=== PATIENT | male | born 1960 | race Caucasian/White ===

== ENCOUNTER 2018-07-13 10:08 | Outpatient (CLI) | payer OTHER ==
[2018-07-13 13:03] LABS: BASOPHILS # (AUTO) 0.1 10^3/uL (0.0-0.1); BASOPHILS % (AUTO) 0.8 %; EOSINOPHILS # (AUTO) 0.5 10^3/uL (0.0-0.7); EOSINOPHILS % (AUTO) 7.4 %; HGB - HEMOGLOBIN 11.5 g/dL (14.0-18.0); LYMPHOCYTES # (AUTO) 1.6 10^3/uL (1.5-3.5); LYMPHOCYTES % (AUTO) 22.1 %; MEAN CORPUSCULAR HEMOGLOBIN 30.6 pg (27.0-31.0); MEAN CORPUSCULAR VOLUME 87.5 fL (80.0-94.0); MONOCYTES # (AUTO) 0.7 10^3/uL (0.0-1.0); NEUTROPHILS # (AUTO) 4.4 10^3/uL (1.5-6.6); NEUTROPHILS % (AUTO) 59.7 %; PLT - PLATELET COUNT 377 10^3/uL (130-450); RED BLOOD COUNT 3.74 10^6/uL (4.70-6.10); RED CELL DISTRIBUTION WIDTH 14.8 % (12.0-15.0); WHITE BLOOD COUNT 7.4 x10^3/uL (4.8-10.8)
== END 2018-07-13 23:59 | disposition home or self-care (01) ==
LOC: LAB.WCP 10:08
PROVIDERS: ATTEND Physician Assistant Medical
DX: D38.1 Neoplasm of uncertain behavior of trachea, bronchus and lung (principal)
CPT/HCPCS: 36415; 85025

== ENCOUNTER 2018-07-18 08:00 | Outpatient (CLI) | payer OTHER ==
[2018-07-18 20:43] LABS: FERRITIN 52.5 ng/mL (23.9-336.2)
[2018-07-18 20:47] LABS: % IRON SATURATION 20 % (20-50); IRON 64 ug/dL (45-182); TOTAL IRON BINDING CAPACITY 319 ug/dL (250-450); TRANSFERRIN 228 mg/dL (180-329)
[2018-07-18 21:28] LABS: FOLATE > 49.60 ng/mL (5.90 - >24.8)
== END 2018-07-18 23:59 | disposition home or self-care (01) ==
LOC: LAB.WCP 08:00
PROVIDERS: ATTEND Physician Assistant Medical
DX: D64.9 Anemia, unspecified (principal)
CPT/HCPCS: 36415; 82607; 82728; 82746; 83540; 84466

== ENCOUNTER 2018-08-15 15:48 | Outpatient (CLI) | payer OTHER | END 2018-08-15 15:49 | disposition home or self-care (01) | LOC: SC 15:48 | PROVIDERS: ATTEND Nurse Practitioner Family | DX: R06.81 Apnea, not elsewhere classified (principal); G47.10 Hypersomnia, unspecified; R41.89 Other symptoms and signs involving cognitive functions and awareness; R06.83 Snoring; G47.8 Other sleep disorders; G47.00 Insomnia, unspecified | CPT/HCPCS: 99204; 99212 ==

== ENCOUNTER 2018-09-21 20:31 | Outpatient (CLI) | payer OTHER | END 2018-09-21 20:32 | disposition home or self-care (01) | LOC: SC 20:31 | PROVIDERS: ATTEND Internal Medicine Pulmonary Disease | DX: G47.33 Obstructive sleep apnea (adult) (pediatric) (principal) | CPT/HCPCS: 95810 ==

== ENCOUNTER 2018-09-27 13:20 | Outpatient (CLI) | payer OTHER | END 2018-09-27 13:21 | disposition home or self-care (01) | LOC: SC 13:20 | PROVIDERS: ATTEND Nurse Practitioner Family | DX: G47.33 Obstructive sleep apnea (adult) (pediatric) (principal) | CPT/HCPCS: 99212; 99215 ==

== ENCOUNTER 2018-10-24 07:13 | Outpatient (CLI) | payer OTHER ==
[2018-10-24 13:37] LABS: ALBUMIN 3.6 g/dL (3.2-5.5); ALBUMIN/GLOBULIN RATIO 1.2 (1.0-2.2); BILIRUBIN,TOTAL 0.8 mg/dL (0.2-1.0); CALCIUM 9.1 mg/dL (8.5-10.3); CREATININE 1.8 mg/dL (0.6-1.2); TOTAL PROTEIN 6.7 g/dL (6.7-8.2)
[2018-10-24 13:39] LABS: HB2 TOTAL 14.2 g/dL; HEMOGLOBIN A1C 0.9 g/dL
== END 2018-10-24 23:59 | disposition home or self-care (01) ==
LOC: LAB.WCP 07:13
PROVIDERS: ATTEND Physician Assistant Medical
DX: E11.9 Type 2 diabetes mellitus without complications (principal)
CPT/HCPCS: 36415; 80053; 83036

== ENCOUNTER 2019-01-17 07:24 | Outpatient (CLI) | payer OTHER ==
[2019-01-17 14:27] LABS: ALBUMIN 3.8 g/dL (3.2-5.5); ALBUMIN/GLOBULIN RATIO 1.1 (1.0-2.2); ALKALINE PHOSPHATASE 81 IU/L (42-121); ALT ALANINE AMINOTRANSFERASE 24 IU/L (10-60); AST ASPARTATE AMINOTRANSFERASE 27 IU/L (10-42); BILIRUBIN,TOTAL 0.6 mg/dL (0.2-1.0); BUN - BLOOD UREA NITROGEN 26 mg/dL (6-20); CALCIUM 9.5 mg/dL (8.5-10.3); CARBON DIOXIDE - CO2 22 mmol/L (21-32); CHLORIDE 106 mmol/L (101-111); CHOL/HDL RATIO 5.5 (<5.0); CHOLESTEROL 180 mg/dL; CREATININE 1.8 mg/dL (0.6-1.2); GFR - MDRD 39 (>89); GLUCOSE 172 mg/dL (70-100); HDL CHOLESTEROL 33 mg/dL; LDL CHOLESTEROL,CALCULATED 107 mg/dL; LDL/HDL RATIO 3.2 (<3.6); SODIUM 138 mmol/L (135-145); TOTAL PROTEIN 7.2 g/dL (6.7-8.2); VLDL CHOLESTEROL 40 mg/dL
== END 2019-01-17 07:25 | disposition home or self-care (01) ==
LOC: LAB.WCP 07:24
PROVIDERS: ATTEND Physician Assistant Medical
DX: E11.9 Type 2 diabetes mellitus without complications (principal)
CPT/HCPCS: 36415; 80053; 80061; 81599; 83036; 83721

== ENCOUNTER 2019-04-16 07:08 | Outpatient (CLI) | payer OTHER ==
[2019-04-16 12:42] LABS: ALBUMIN 3.6 g/dL (3.2-5.5); ALBUMIN/GLOBULIN RATIO 1.1 (1.0-2.2); ALKALINE PHOSPHATASE 85 IU/L (42-121); ALT ALANINE AMINOTRANSFERASE 17 IU/L (10-60); AST ASPARTATE AMINOTRANSFERASE 24 IU/L (10-42); BILIRUBIN,TOTAL 0.7 mg/dL (0.2-1.0); BUN - BLOOD UREA NITROGEN 31 mg/dL (6-20); CALCIUM 9.2 mg/dL (8.5-10.3); CARBON DIOXIDE - CO2 28 mmol/L (21-32); CHLORIDE 106 mmol/L (101-111); CHOL/HDL RATIO 5.3 (<5.0); CHOLESTEROL 144 mg/dL; GFR - MDRD 35 (>89); GLUCOSE 126 mg/dL (70-100); HDL CHOLESTEROL 27 mg/dL; LDL CHOLESTEROL,CALCULATED 48 mg/dL; LDL/HDL RATIO 1.8 (<3.6); SODIUM 140 mmol/L (135-145); TOTAL PROTEIN 6.9 g/dL (6.7-8.2); VLDL CHOLESTEROL 69 mg/dL
[2019-04-16 12:48] LABS: HB2 TOTAL 11.9 g/dL; HEMOGLOBIN A1C 0.58 g/dL; HEMOGLOBIN A1C % 6.6 % (4.6-6.2)
== END 2019-04-16 23:59 | disposition home or self-care (01) ==
LOC: LAB.WCP 07:08
PROVIDERS: ATTEND Physician Assistant Medical
DX: E11.9 Type 2 diabetes mellitus without complications (principal)
CPT/HCPCS: 36415; 80053; 80061; 83036; 83721

== ENCOUNTER → 2019-04-17 | Outpatient (CLI) | payer OTHER ==
--- NOTE | 2019-04-17 21:07 | XRAY Report ---
Reason: COUGH, CARCINOID TUMOR LUNG Procedure Date: 04/17/2019 Accession Number: [id number] / [id number] Procedure: WCP - Chest 2 View X-Ray CPT Code: 60527 FULL RESULT: EXAM: CHEST RADIOGRAPHY EXAM DATE: 04/17/2019 11:28 AM. CLINICAL HISTORY: Cough, carcinoid tumor lung. COMPARISON: None available. TECHNIQUE: 2 views. FINDINGS: Lungs/Pleura: There is asymmetric volume loss in the left lung with asymmetric elevation of the left hemidiaphragm. On the frontal view, there is hazy density in the lower left lung silhouetting with the heart border. The right lung is grossly clear. Mediastinum: The left heart border is poorly defined. The mediastinal silhouette appears normal. Other: There is degenerative endplate spurring in the spine. IMPRESSION: Volume loss in the left lung with hazy density in the lower left lung silhouetting with the heart border. Comparison with prior exams would be useful to evaluate stability of these findings. None are currently available. [facility]
== END ==
LOC: DI.WCP 11:10 → EDSTATUS 13:34
PROVIDERS: ATTEND Physician Assistant Medical
DX: R91.8 Other nonspecific abnormal finding of lung field (principal); R05 Cough
CPT/HCPCS: 71046

== ENCOUNTER 2019-10-16 07:17 | Outpatient (CLI) | payer OTHER ==
[2019-10-16 12:19] LABS: BASOPHILS % (AUTO) 0.4 %; EOSINOPHILS # (AUTO) 0.1 10^3/uL (0.0-0.7); EOSINOPHILS % (AUTO) 2.5 %; LYMPHOCYTES # (AUTO) 1.4 10^3/uL (1.5-3.5); LYMPHOCYTES % (AUTO) 27.5 %; MEAN CORPUSCULAR HEMOGLOBIN 31.2 pg (27.0-31.0); MEAN CORPUSCULAR HGB CONC 34.7 g/dL (32.0-36.0); MEAN CORPUSCULAR VOLUME 89.9 fL (80.0-94.0); MEAN PLATELET VOLUME 9.1 fL (7.4-11.4); MONOCYTES # (AUTO) 0.5 10^3/uL (0.0-1.0); MONOCYTES % (AUTO) 10.3 %; NEUTROPHILS % (AUTO) 58.7 %; PLT - PLATELET COUNT 210 10^3/uL (130-450); RED BLOOD COUNT 3.85 10^6/uL (4.70-6.10); RED CELL DISTRIBUTION WIDTH 12.7 % (12.0-15.0); WHITE BLOOD COUNT 5.2 x10^3/uL (4.8-10.8)
[2019-10-16 12:29] LABS: ALBUMIN 3.5 g/dL (3.2-5.5); ALBUMIN/GLOBULIN RATIO 1.1 (1.0-2.2); ALKALINE PHOSPHATASE 95 IU/L (42-121); ALT ALANINE AMINOTRANSFERASE 22 IU/L (10-60); AST ASPARTATE AMINOTRANSFERASE 21 IU/L (10-42); BILIRUBIN,TOTAL 0.6 mg/dL (0.2-1.0); BUN - BLOOD UREA NITROGEN 33 mg/dL (6-20); CARBON DIOXIDE - CO2 24 mmol/L (21-32); CHLORIDE 103 mmol/L (101-111); CHOL/HDL RATIO 5.6 (<5.0); CHOLESTEROL 179 mg/dL; CREATININE 2.5 mg/dL (0.6-1.2); GFR - MDRD 27 (>89); GLUCOSE 186 mg/dL (70-100); HDL CHOLESTEROL 32 mg/dL; LDL CHOLESTEROL,CALCULATED 77 mg/dL; LDL/HDL RATIO 2.4 (<3.6); LIPASE 42 U/L (22-51); SODIUM 135 mmol/L (135-145); TOTAL PROTEIN 6.7 g/dL (6.7-8.2); VLDL CHOLESTEROL 70 mg/dL
[2019-10-16 13:25] LABS: HB2 TOTAL 12.3 g/dL; HEMOGLOBIN A1C 0.67 g/dL; HEMOGLOBIN A1C % 7.1 % (4.6-6.2)
== END 2019-10-16 23:59 | disposition home or self-care (01) ==
LOC: LAB.WCP 07:17
PROVIDERS: ATTEND Physician Assistant Medical
DX: E78.5 Hyperlipidemia, unspecified (principal); E11.9 Type 2 diabetes mellitus without complications; R10.32 Left lower quadrant pain
CPT/HCPCS: 36415; 80053; 80061; 83036; 83690; 83721; 85025

== ENCOUNTER 2019-12-11 08:00 | Outpatient (CLI) | payer OTHER ==
[2019-12-11 13:54] LABS: CALCIUM 8.8 mg/dL (8.5-10.3); CREATININE 2.4 mg/dL (0.6-1.2)
[2019-12-11 14:30] LABS: CREATININE,URINE 89.9 mg/dL; PROTEIN/CREATININE RATIO,URINE 8.7 (<=0.2)
== END 2019-12-11 23:59 | disposition home or self-care (01) ==
LOC: LAB.WCP 08:00
PROVIDERS: ATTEND Internal Medicine Nephrology
DX: N05.9 Unspecified nephritic syndrome with unspecified morphologic changes (principal); R80.9 Proteinuria, unspecified
CPT/HCPCS: 36415; 80048; 82570; 84156

== ENCOUNTER 2020-01-14 07:05 | Outpatient (CLI) | payer OTHER ==
[2020-01-14 11:48] LABS: CALCIUM 8.9 mg/dL (8.5-10.3); CREATININE 2.7 mg/dL (0.6-1.2)
[2020-01-14 12:06] LABS: HB2 TOTAL 11.8 g/dL; HEMOGLOBIN A1C 0.64 g/dL; HEMOGLOBIN A1C % 7.1 % (4.6-6.2)
== END 2020-01-14 23:59 | disposition home or self-care (01) ==
LOC: LAB.WCP 07:05
PROVIDERS: ATTEND Physician Assistant Medical
DX: E11.9 Type 2 diabetes mellitus without complications (principal)
CPT/HCPCS: 36415; 80048; 83036

== ENCOUNTER 2020-05-20 07:00 | Outpatient (CLI) | payer OTHER ==
[2020-05-20 12:27] LABS: BASOPHILS % (AUTO) 0.3 %; EOSINOPHILS # (AUTO) 0.1 10^3/uL (0.0-0.7); EOSINOPHILS % (AUTO) 1.7 %; HGB - HEMOGLOBIN 10.4 g/dL (14.0-18.0); LYMPHOCYTES # (AUTO) 1.7 10^3/uL (1.5-3.5); LYMPHOCYTES % (AUTO) 28.5 %; MEAN CORPUSCULAR HEMOGLOBIN 31.1 pg (27.0-31.0); MEAN CORPUSCULAR HGB CONC 33.8 g/dL (32.0-36.0); MEAN CORPUSCULAR VOLUME 92.2 fL (80.0-94.0); MEAN PLATELET VOLUME 9.4 fL (7.4-11.4); MONOCYTES # (AUTO) 0.5 10^3/uL (0.0-1.0); MONOCYTES % (AUTO) 8.8 %; NEUTROPHILS # (AUTO) 3.5 10^3/uL (1.5-6.6); NEUTROPHILS % (AUTO) 60.4 %; PLT - PLATELET COUNT 213 10^3/uL (130-450); RED BLOOD COUNT 3.34 10^6/uL (4.70-6.10); RED CELL DISTRIBUTION WIDTH 12.7 % (12.0-15.0); WHITE BLOOD COUNT 5.8 x10^3/uL (4.8-10.8)
[2020-05-20 12:41] LABS: ALBUMIN 3.8 g/dL (3.2-5.5); ALBUMIN/GLOBULIN RATIO 1.1 (1.0-2.2); ALKALINE PHOSPHATASE 113 IU/L (42-121); ALT ALANINE AMINOTRANSFERASE 15 IU/L (10-60); AST ASPARTATE AMINOTRANSFERASE 17 IU/L (10-42); BILIRUBIN,TOTAL 0.7 mg/dL (0.2-1.0); BUN - BLOOD UREA NITROGEN 44 mg/dL (6-20); CALCIUM 9.2 mg/dL (8.5-10.3); CARBON DIOXIDE - CO2 26 mmol/L (21-32); CHLORIDE 103 mmol/L (101-111); CHOL/HDL RATIO 6.1 (<5.0); CHOLESTEROL 176 mg/dL; CREATININE 2.8 mg/dL (0.6-1.2); GLUCOSE 154 mg/dL (70-100); HDL CHOLESTEROL 29 mg/dL; LDL CHOLESTEROL,CALCULATED 78 mg/dL; LDL/HDL RATIO 2.7 (<3.6); SODIUM 139 mmol/L (135-145); TOTAL PROTEIN 7.2 g/dL (6.7-8.2); VLDL CHOLESTEROL 69 mg/dL
[2020-05-20 13:27] LABS: CREATININE,URINE 66.8 mg/dL; MICROALBUM/CREATININE RATIO,UR 2760.5 ug/mg (<30.0); MICROALBUMIN,URINE 184.4 mg/dL (0-300.0)
[2020-05-20 13:36] LABS: HEMOGLOBIN A1c% 7.8 % (4.27-6.07)
== END 2020-05-20 23:59 | disposition home or self-care (01) ==
LOC: LAB.WCP 07:00
PROVIDERS: ATTEND Physician Assistant Medical
DX: E78.5 Hyperlipidemia, unspecified (principal); E11.9 Type 2 diabetes mellitus without complications; Z12.5 Encounter for screening for malignant neoplasm of prostate
CPT/HCPCS: 36415; 80050; 80061; 82043; 82570; 83036; 83721; 84153

== ENCOUNTER 2020-06-12 13:54 | Outpatient (CLI) | payer OTHER ==
[2020-06-12 18:39] LABS: BASOPHILS % (AUTO) 0.4 %; EOSINOPHILS # (AUTO) 0.1 10^3/uL (0.0-0.7); EOSINOPHILS % (AUTO) 2.8 %; HGB - HEMOGLOBIN 10.4 g/dL (14.0-18.0); LYMPHOCYTES # (AUTO) 1.4 10^3/uL (1.5-3.5); MEAN CORPUSCULAR HGB CONC 33.9 g/dL (32.0-36.0); MEAN CORPUSCULAR VOLUME 91.4 fL (80.0-94.0); MEAN PLATELET VOLUME 9.5 fL (7.4-11.4); MONOCYTES # (AUTO) 0.4 10^3/uL (0.0-1.0); MONOCYTES % (AUTO) 8.1 %; NEUTROPHILS # (AUTO) 2.7 10^3/uL (1.5-6.6); NEUTROPHILS % (AUTO) 58.3 %; PLT - PLATELET COUNT 198 10^3/uL (130-450); RED BLOOD COUNT 3.36 10^6/uL (4.70-6.10); RED CELL DISTRIBUTION WIDTH 12.6 % (12.0-15.0); WHITE BLOOD COUNT 4.6 x10^3/uL (4.8-10.8)
[2020-06-12 20:04] LABS: % IRON SATURATION 26 % (20-50); IRON 89 ug/dL (45-182); TOTAL IRON BINDING CAPACITY 337 ug/dL (250-450); TRANSFERRIN 241 mg/dL (180-329)
== END 2020-06-12 23:59 | disposition home or self-care (01) ==
LOC: LAB.WCP 13:54
PROVIDERS: ATTEND Physician Assistant Medical
DX: D64.9 Anemia, unspecified (principal)
CPT/HCPCS: 36415; 82728; 83540; 84466; 85025

== ENCOUNTER 2020-07-14 13:23 | Outpatient (CLI) | payer OTHER ==
--- NOTE | 2020-07-14 16:49 | XRAY Report ---
PROCEDURE: Foot 3 View BILAT INDICATIONS: FOOT PAIN TECHNIQUE: 2 views of the foot were acquired. COMPARISON: None FINDINGS: Bones: No fractures or dislocations. No suspicious bony lesions. Bilateral scattered minimal IP de generative narrowing most notable at the first MTP joint. Minimal scattered areas of periarticular os teophytes are noted. No erosions. Soft tissues: No tibiotalar joint effusion. Achilles tendon appears normal. IMPRESSION: Scattered areas of IP narrowing suggestive early arthritic change. Reviewed by: Rowan Chavis MD on 07/14/2020 4:48 PM PST Approved by: Rowan Chavis MD on 07/14/2020 4:48 PM PST Station ID: [id number]
== END 2020-07-14 13:24 | disposition home or self-care (01) ==
LOC: DI.N 13:23
PROVIDERS: ATTEND Physician Assistant Medical
DX: M79.671 Pain in right foot (principal); M79.672 Pain in left foot; G62.9 Polyneuropathy, unspecified

== ENCOUNTER 2020-09-11 08:54 | Outpatient (CLI) | payer OTHER ==
[2020-09-11 12:48] LABS: CALCIUM 8.9 mg/dL (8.5-10.3); CREATININE 3.1 mg/dL (0.6-1.2)
[2020-09-11 13:26] LABS: HEMOGLOBIN A1c% 7.8 % (4.27-6.07)
== END 2020-09-11 23:59 | disposition home or self-care (01) ==
LOC: LAB.WCP 08:54
PROVIDERS: ATTEND Physician Assistant Medical
DX: E11.9 Type 2 diabetes mellitus without complications (principal)
CPT/HCPCS: 36415; 80048; 83036

== ENCOUNTER 2021-01-19 08:00 | Outpatient (CLI) | payer OTHER ==
[2021-01-19 12:32] LABS: ALBUMIN 3.6 g/dL (3.2-5.5); ALBUMIN/GLOBULIN RATIO 1.1 (1.0-2.2); ALKALINE PHOSPHATASE 115 IU/L (42-121); ALT ALANINE AMINOTRANSFERASE 17 IU/L (10-60); AST ASPARTATE AMINOTRANSFERASE 19 IU/L (10-42); BILIRUBIN,TOTAL 0.6 mg/dL (0.2-1.0); BUN - BLOOD UREA NITROGEN 45 mg/dL (6-20); CARBON DIOXIDE - CO2 23 mmol/L (21-32); CHLORIDE 107 mmol/L (101-111); CHOL/HDL RATIO 6.3 (<5.0); CHOLESTEROL 177 mg/dL; CREATININE 3.3 mg/dL (0.6-1.2); GFR - MDRD 19 (>89); GLUCOSE 124 mg/dL (70-100); HDL CHOLESTEROL 28 mg/dL; LDL CHOLESTEROL,CALCULATED 84 mg/dL; POTASSIUM 5.1 mmol/L (3.5-5.0); SODIUM 141 mmol/L (135-145); TRIGLYCERIDES 324 mg/dL; VLDL CHOLESTEROL 65 mg/dL
[2021-01-19 13:18] LABS: ESTIMATED AVERAGE GLUCOSE 143 mg/dL (70-100); HEMOGLOBIN A1c% 6.6 % (4.27-6.07)
== END 2021-01-19 23:59 | disposition home or self-care (01) ==
LOC: LAB.WCP 08:00
PROVIDERS: ATTEND Physician Assistant Medical
DX: E11.9 Type 2 diabetes mellitus without complications (principal)
CPT/HCPCS: 36415; 80053; 80061; 83036; 83721

== ENCOUNTER 2021-05-11 08:00 | Outpatient (CLI) | payer OTHER ==
[2021-05-11 12:12] LABS: CALCIUM 8.9 mg/dL (8.5-10.3); CREATININE 3.7 mg/dL (0.6-1.2); POTASSIUM 4.9 mmol/L (3.5-5.0)
[2021-05-11 12:39] LABS: ESTIMATED AVERAGE GLUCOSE 134 mg/dL (70-100); HEMOGLOBIN A1c% 6.3 % (4.27-6.07)
== END 2021-05-11 23:59 | disposition home or self-care (01) ==
LOC: LAB.WCP 08:00
PROVIDERS: ATTEND Physician Assistant Medical
DX: E11.9 Type 2 diabetes mellitus without complications (principal)
CPT/HCPCS: 36415; 80048; 83036

== ENCOUNTER 2022-06-02 09:12 | Outpatient (CLI) | payer OTHER ==
[2022-06-02 12:32] LABS: CALCIUM 9.2 mg/dL (8.5-10.3); CREATININE 5.5 mg/dL (0.6-1.2); POTASSIUM 4.6 mmol/L (3.5-5.0)
[2022-06-02 12:43] LABS: ESTIMATED AVERAGE GLUCOSE 146 mg/dL (70-100); HEMOGLOBIN A1c% 6.7 % (4.27-6.07)
== END 2022-06-02 09:13 | disposition home or self-care (01) ==
LOC: LAB.N 09:12
PROVIDERS: ATTEND Physician Assistant Medical
DX: E11.9 Type 2 diabetes mellitus without complications (principal)
CPT/HCPCS: 36415; 80048; 83036

== ENCOUNTER 2022-06-20 15:41 | Outpatient (CLI) | payer OTHER ==
[2022-06-20 17:43] LABS: BASOPHILS % (AUTO) 0.2 %; EOSINOPHILS # (AUTO) 0.1 10^3/uL (0.0-0.7); EOSINOPHILS % (AUTO) 2.9 %; HCT - HEMATOCRIT 27.2 % (42.0-52.0); HGB - HEMOGLOBIN 9.3 g/dL (14.0-18.0); LYMPHOCYTES # (AUTO) 0.9 10^3/uL (1.5-3.5); LYMPHOCYTES % (AUTO) 22.4 %; MEAN CORPUSCULAR HEMOGLOBIN 30.6 pg (27.0-31.0); MEAN CORPUSCULAR HGB CONC 34.2 g/dL (32.0-36.0); MEAN CORPUSCULAR VOLUME 89.5 fL (80.0-94.0); MEAN PLATELET VOLUME 9.1 fL (7.4-11.4); MONOCYTES # (AUTO) 0.4 10^3/uL (0.0-1.0); NEUTROPHILS # (AUTO) 2.7 10^3/uL (1.5-6.6); NEUTROPHILS % (AUTO) 65.3 %; PLT - PLATELET COUNT 160 10^3/uL (130-450); RED BLOOD COUNT 3.04 10^6/uL (4.70-6.10); RED CELL DISTRIBUTION WIDTH 13.1 % (12.0-15.0); WHITE BLOOD COUNT 4.2 x10^3/uL (4.8-10.8)
[2022-06-20 18:37] LABS: CALCIUM 8.9 mg/dL (8.5-10.3); CREATININE 5.6 mg/dL (0.6-1.2)
[2022-06-20 18:52] LABS: CREATININE,URINE 105.6 mg/dL; FERRITIN 258.4 ng/mL (23.9-336.2); PROTEIN/CREATININE RATIO,URINE 6.1 (<=0.2)
[2022-06-20 19:48] LABS: PHOSPHORUS 4.2 mg/dL (2.5-4.6)
== END 2022-06-20 15:42 | disposition home or self-care (01) ==
LOC: LAB.N 15:41
PROVIDERS: ATTEND Internal Medicine Nephrology
DX: N05.9 Unspecified nephritic syndrome with unspecified morphologic changes (principal); N25.81 Secondary hyperparathyroidism of renal origin; R80.9 Proteinuria, unspecified; D70.9 Neutropenia, unspecified; D63.1 Anemia in chronic kidney disease; D50.0 Iron deficiency anemia secondary to blood loss (chronic); E83.30 Disorder of phosphorus metabolism, unspecified
CPT/HCPCS: 36415; 80048; 82570; 82728; 83540; 83970; 84100; 84156; 84466; 85025

== ENCOUNTER 2022-06-23 14:46 | Outpatient (CLI) | payer OTHER ==
--- NOTE | 2022-06-23 15:28 | XRAY Report ---
PROCEDURE: Chest 2 View X-Ray INDICATIONS: Dyspnea TECHNIQUE: 2 views of the chest were acquired. COMPARISON: 04/17/2019 FINDINGS: Stable asymmetric elevation of the left hemidiaphragm. The lungs appear clear. No visible pleural eff usion or findings of pneumothorax. Heart size is within normal limits. IMPRESSION: No acute cardiopulmonary process demonstrated radiographically. Reviewed by: Sean Quevedo MD on 06/23/2022 3:26 PM [facility] Approved by: Sean Quevedo MD on 06/23/2022 3:26 PM [facility] Station ID: [id number]
[2022-06-24 04:08] LABS: HBsAG SCREEN Negative (Negative); HCV AB <0.1 s/co ratio (0.0-0.9); HEPATITIS B SURFACE AB QUANT <3.1 mIU/mL (Immunity>9.9)
== END 2022-06-23 14:47 | disposition home or self-care (01) ==
LOC: DI 14:46
PROVIDERS: ATTEND Internal Medicine Nephrology
DX: R06.00 Dyspnea, unspecified (principal); B19.10 Unspecified viral hepatitis B without hepatic coma; B17.10 Acute hepatitis C without hepatic coma
CPT/HCPCS: 36415; 86317; 86704; 86803; 87340

== ENCOUNTER 2022-09-30 09:34 | Outpatient (CLI) | payer OTHER ==
[2022-09-30 11:10] LABS: CREATININE 4.3 mg/dL (0.6-1.2)
--- NOTE | 2022-09-30 14:32 | CT Report ---
PROCEDURE: ABDOMEN/PELVIS W INDICATIONS: LLQ ABD PAIN CONTRAST: 100ml omni 300 TECHNIQUE: After the administration of IV and oral contrast, 5 mm thick sections acquired from the diaphragms to the symphysis. 5 mm thick coronal and sagittal reformats were acquired. For radiation dose reducti on, the following was used: automated exposure control, adjustment of mA and/or kV according to tamy ent size. COMPARISON: None. FINDINGS: Image quality: Excellent. ABDOMEN: Lung bases: Lung bases are clear. Heart size is normal. Solid organs: Liver and spleen are normal in size and enhancement. Gallbladder is partially decompr essed and has a normal CT appearance. Biliary system is non dilated. Pancreas enhances normally. N o adrenal nodules. Both kidneys demonstrate mild diffuse cortical thinning and multicystic appearance consistent with kn own history of renal failure. Several cystic lesions are slightly hyperdense and are technically inde terminant. Peritoneum and bowel: The stomach contains ingested material. The wall is normal thickness there are is no perigastric inflammation. Most of the small bowel loops are decompressed. A normal appendix is present. Colonic diverticula are seen from the mid transverse colon through the descending and sigmo id colon area the distal colon is diffusely decompressed. There is no focal wall thickening or focal pericolonic inflammation. No extraluminal gas or fluid. Nodes and vessels: No retroperitoneal or mesenteric adenopathy by size criteria. Aorta and inferior vena cava are normal in size. Miscellaneous: No ventral hernias. PELVIS: Genitourinary: Bladder wall thickness is normal. Miscellaneous: No inguinal hernias or adenopathy. Bones: No vertebral body fractures. Probable chronic L5 pars defects. 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 No suspicious bone lesions. IMPRESSION: 1. Moderate to extensive diverticulosis involving descending and sigmoid colon without inflammatory c hanges to suggest acute diverticulitis. Nonetheless, diverticulosis is a common cause for lower GI bl eed. 2. Mildly diminutive kidneys with several cystic lesions which are indeterminant, but likely benign. Correlate with any prior imaging or consider one-year follow-up. Reviewed by: Ann Singh MD on 09/30/2022 2:30 PM PST Approved by: Ann Singh MD on 09/30/2022 2:30 PM PST Station ID: [id number]
[2022-09-30] MEDS ORDERED: iohexoL-300 100 ML VIAL IVP ONE (15:24)
[2022-09-30] MEDS ORDERED: DIATRIZOATE MEGLU/DIATRIZO SOD 30 ML BOTTLE PO ONE (15:25)
== END 2022-09-30 09:35 | disposition home or self-care (01) ==
LOC: LAB 09:34
PROVIDERS: ATTEND Internal Medicine Gastroenterology
DX: R10.32 Left lower quadrant pain (principal); K62.5 Hemorrhage of anus and rectum; K57.31 Diverticulosis of large intestine without perforation or abscess with bleeding; N28.1 Cyst of kidney, acquired
CPT/HCPCS: 36415; 74177; 82565; 84520; Q9963; Q9967

== ENCOUNTER 2022-10-05 07:31 | Outpatient (CLI) | payer OTHER ==
[2022-10-05 12:43] LABS: ALBUMIN 3.7 g/dL (3.2-5.5); ALKALINE PHOSPHATASE 96 IU/L (42-121); ALT ALANINE AMINOTRANSFERASE 24 IU/L (10-60); AST ASPARTATE AMINOTRANSFERASE 21 IU/L (10-42); BILIRUBIN,TOTAL 0.8 mg/dL (0.2-1.0); BUN - BLOOD UREA NITROGEN 29 mg/dL (6-20); CALCIUM 9.5 mg/dL (8.5-10.3); CARBON DIOXIDE - CO2 31 mmol/L (21-32); CHLORIDE 96 mmol/L (101-111); CHOL/HDL RATIO 4.7 (<5.0); CHOLESTEROL 154 mg/dL; CREATININE 3.9 mg/dL (0.6-1.2); GFR - MDRD 16 (>89); GLUCOSE 185 mg/dL (70-100); HDL CHOLESTEROL 33 mg/dL; LDL CHOLESTEROL,CALCULATED 63 mg/dL; LDL/HDL RATIO 1.9 (<3.6); POTASSIUM 4.3 mmol/L (3.5-5.0); SODIUM 137 mmol/L (135-145); TOTAL PROTEIN 7.5 g/dL (6.7-8.2); TRIGLYCERIDES 292 mg/dL; VLDL CHOLESTEROL 58 mg/dL
[2022-10-05 12:45] LABS: ESTIMATED AVERAGE GLUCOSE 140 mg/dL (70-100); HEMOGLOBIN A1c% 6.5 % (4.27-6.07)
== END 2022-10-05 07:32 | disposition home or self-care (01) ==
LOC: LAB.N 07:31
PROVIDERS: ATTEND Physician Assistant Medical
DX: E11.9 Type 2 diabetes mellitus without complications (principal)
CPT/HCPCS: 36415; 80053; 80061; 83036; 83721

== ENCOUNTER 2022-11-14 12:13 | Outpatient (CLI) | payer OTHER | END 2022-11-14 12:14 | disposition home or self-care (01) | LOC: LAB.N 12:13 | PROVIDERS: ATTEND Internal Medicine Nephrology | DX: I50.32 Chronic diastolic (congestive) heart failure (principal) | CPT/HCPCS: 36415; 83880 ==

== ENCOUNTER 2023-02-03 10:03 | Outpatient (CLI) | payer OTHER ==
[2023-02-03 14:12] LABS: ESTIMATED AVERAGE GLUCOSE 171 mg/dL (70-100); HEMOGLOBIN A1c% 7.6 % (4.27-6.07)
== END 2023-02-03 10:04 | disposition home or self-care (01) ==
LOC: LAB.N 10:03
PROVIDERS: ATTEND Physician Assistant Medical
DX: E11.9 Type 2 diabetes mellitus without complications (principal)
CPT/HCPCS: 36415; 83036

== ENCOUNTER 2023-03-15 07:02 | Outpatient (CLI) | payer OTHER ==
--- NOTE | 2023-03-15 15:08 | Ultrasound Report ---
PROCEDURE: Retroperitoneal INDICATIONS: CKD STAGE IV TECHNIQUE: Real-time scanning was performed of the retroperitoneal organs, with image documentation. COMPARISON: CT of abdomen and pelvis dated 09/30/2022. FINDINGS: Kidneys: Kidneys are normal in size. Right kidney measures 11.5 cm long; left kidney measures 16.8 cm long. Right renal cortical thickness is 0.9 cm; left renal cortical thickness is 1.5 cm. No hydro nephrosis or nephrolithiasis. 2.8 x 2.4 x 2.9 cm solid appearing mass in upper pole right kidney late ral cortex is seen and shoulder internal vascularity. Multiple simple appearing bilateral renal cysts are seen measures up to 5.1 x 4.7 x 4.8 cm in size in lower pole left kidney. 2 smaller cysts are no herminio in lower pole left kidney containing thin internal septations measures 3 x 2.8 x 3 cm and 1.8 x 1 .3 x 1.6 cm in size. Bladder: Pre-void bladder volume is 36.5 mL. Post-void residual is 0 mL. Pre-void images demonstra te no intraluminal masses or stones. On pre-void images, bilateral ureteral jets are noted with colo r Doppler interrogation. (Of note, ureteral jets may not be detectable in up to 25% of cases due to insufficient differences in specific gravity between ureteral and bladder urine). Miscellaneous: No free abdominal fluid. IMPRESSION: 1. 2.8 x 2.4 x 2.9 cm solid mass with increased vascularity seen in upper pole right kidney concernin g for renal cell carcinoma until proven otherwise. 2. Bilateral renal cysts including 2 septated cysts in lower pole left kidney as above. Sonographic f ollow-up is recommended. No hydronephrosis or nephrolithiasis. 3. Normal-appearing urinary bladder. Reviewed by: Clay Brownlee MD on 03/15/2023 3:07 PM PDT Approved by: Clay Brownlee MD on 03/15/2023 3:07 PM PDT Station ID: [id number]
== END 2023-03-15 07:03 | disposition home or self-care (01) ==
LOC: DI 07:02
PROVIDERS: ATTEND Physician Assistant Medical
DX: N18.4 Chronic kidney disease, stage 4 (severe) (principal); N28.89 Other specified disorders of kidney and ureter; N28.1 Cyst of kidney, acquired

== ENCOUNTER 2023-03-15 07:08 | Outpatient (CLI) | payer MEDICARE, OTHER ==
--- NOTE | 2023-03-15 12:53 | XRAY Report ---
PROCEDURE: Chest 2 View X-Ray INDICATIONS: CARCINOID TUMOR,LUNG TECHNIQUE: 2 views of the chest were acquired. COMPARISON: Chest radiograph 06/23/2022. FINDINGS: Surgical changes and devices: None. Lungs and pleura: No focal consolidation. No pleural effusions or pneumothorax. Mediastinum: Mediastinum is unchanged. Heart size is normal. Bones and chest wall: No suspicious bony lesions. Overlying soft tissues appear unremarkable. IMPRESSION: Compared to prior radiograph 06/23/2022, no significant interval change. No radiographic evidence of acute cardiopulmonary process. Reviewed by: Dana Navas MD on 03/15/2023 12:52 PM PDT Approved by: Dana Navas MD on 03/15/2023 12:52 PM PDT Station ID: [id number]
== END 2023-03-15 07:09 | disposition home or self-care (01) ==
LOC: DI 07:08
PROVIDERS: ATTEND Physician Assistant Medical
DX: D38.1 Neoplasm of uncertain behavior of trachea, bronchus and lung (principal); N18.4 Chronic kidney disease, stage 4 (severe); N28.89 Other specified disorders of kidney and ureter; N28.1 Cyst of kidney, acquired

== ENCOUNTER 2023-04-07 11:03 | Outpatient (CLI) | payer MEDICARE, OTHER ==
[2023-04-07] MEDS ORDERED: iohexoL-300 100 ML VIAL IVP ONE (14:05)
[2023-04-07] MEDS ORDERED: BARIUM SULFATE 450 ML BOTTLE PO ONE (14:06)
--- NOTE | 2023-04-07 17:01 | CT Report ---
PROCEDURE: ABDOMEN/PELVIS W INDICATIONS: RIGHT KIDNEY CA CONTRAST: 100ml omni 300 TECHNIQUE: After the administration of oral and intravenous contrast, 5 mm thick sections acquired from the diap hragms to the symphysis. 5 mm thick coronal and sagittal reformats were acquired. For radiation dos e reduction, the following was used: automated exposure control, adjustment of mA and/or kV accordin g to patient size. COMPARISON: Renal ultrasound dated 03/15/2023, CT abdomen and pelvis with contrast dated 09/30/2022 FINDINGS: Image quality: Excellent. Lung bases and heart: Unremarkable. Liver: No solid mass. Gallbladder and biliary tree: No radiopaque stones or wall thickening. No biliary dilation. Spleen: No splenomegaly. Pancreas: No pancreatic ductal dilation. Adrenals: No adrenal nodule. Kidneys and ureters: On the recent renal ultrasound, there is a question of a possible 2.8 cm maximum diameter solid mass of the upper pole the right kidney, suspicious for possible renal cell carcinoma . A suspicious lesion is not identified on the previous CT, and is not identified on the current CT. Multiple renal cysts are present. Multiple bilateral renal cysts are present, left greater than right . Bowel and peritoneum: No bowel distension. No pathologic free fluid. Moderate sigmoid diverticulosis without evidence of diverticulitis. Lymph nodes: No central or retroperitoneal adenopathy. Vessels: No infrarenal aortic aneurysm. PELVIS Reproductive organs: Unremarkable. Bladder: No abnormal wall thickening, accounting for underdistension. Pelvic lymph nodes: No pelvic adenopathy by size criteria. Bones: Anterolisthesis of L5 on S1 with severe bilateral foraminal narrowing and bilateral foraminal L5 nerve root impingement. No lytic or blastic lesion. No compression fracture. Other: No significant ventral or inguinal hernia. IMPRESSION: 1. The potential renal cell carcinoma seen on the recent ultrasound from 3 weeks ago is not identifia ble by CT. 2. Diverticulosis without evidence of diverticulitis. 3. Note is made of anterolisthesis of L5 on S1 with severe bilateral foraminal narrowing and bilatera l foraminal L5 nerve root impingement. Comment: Recommend multiphase MRI of the kidneys to exclude a subtle vascular renal mass. Reviewed by: Js Delgadillo MD on 04/07/2023 4:59 PM PDT Approved by: Js Delgadillo MD on 04/07/2023 4:59 PM PDT Station ID: [id number]
== END 2023-04-07 11:04 | disposition home or self-care (01) ==
LOC: DI 11:03
PROVIDERS: ATTEND Internal Medicine Nephrology
DX: R93.421 Abnormal radiologic findings on diagnostic imaging of right kidney (principal)
CPT/HCPCS: 74177; A9270; Q9967

== ENCOUNTER 2023-04-10 13:24 | Outpatient (CLI) | payer MEDICARE, OTHER ==
[2023-04-10] MEDS ORDERED: ALBUTEROL 1 PUFF INH STA (16:34)
== END 2023-04-10 13:25 | disposition home or self-care (01) ==
LOC: RT 13:24
PROVIDERS: ATTEND Physician Assistant Medical
DX: D3A.090 Benign carcinoid tumor of the bronchus and lung (principal)
CPT/HCPCS: 94060; 94727; 94729

== ENCOUNTER 2023-05-12 07:30 | Outpatient (CLI) | payer MEDICARE ==
[2023-05-12 12:20] LABS: CHOL/HDL RATIO 4.4 (<5.0); CHOLESTEROL 142 mg/dL; HDL CHOLESTEROL 32 mg/dL; LDL CHOLESTEROL,CALCULATED 54 mg/dL; LDL/HDL RATIO 1.7 (<3.6); TRIGLYCERIDES 281 mg/dL (48-352); VLDL CHOLESTEROL 56 mg/dL
== END 2023-05-12 07:31 | disposition home or self-care (01) ==
LOC: LAB.N 07:30
PROVIDERS: ATTEND Physician Assistant Medical
DX: E11.9 Type 2 diabetes mellitus without complications (principal)
CPT/HCPCS: 36415; 80061; 83721

== ENCOUNTER 2023-08-01 16:37 | Outpatient (CLI) | payer MEDICARE, OTHER ==
--- NOTE | 2023-08-02 14:15 | Ultrasound Report ---
PROCEDURE: Retroperitoneal INDICATIONS: KIDNEY MASS TECHNIQUE: Real-time scanning was performed of the retroperitoneal organs, with image documentation. COMPARISON: CT abdomen pelvis 04/07/2023, ultrasound kidneys 03/15/2023. FINDINGS: Kidneys: Kidneys are normal in size. Right kidney measures 10.5 cm long; left kidney measures 14.5 cm long. Right renal cortical thickness is 1.7 cm; left renal cortical thickness is 1.3 cm. Multiple bilateral renal simple cyst. Septated cyst within the left kidney measuring 3.0 cm. Similar size of solid mass in the upper pole of the right kidney measuring 2.7 x 2.6 x 2.6 cm, producing 2.8 x 2.4 x 2.9 cm, with increased vascularity. Bladder: Pre-void bladder volume is 100 mL. Post-void residual is 3 mL. Pre-void images demonstrat e no intraluminal masses or stones. On pre-void images, bilateral ureteral jets are noted with color Doppler interrogation. (Of note, ureteral jets may not be detectable in up to 25% of cases due to i nsufficient differences in specific gravity between ureteral and bladder urine). Miscellaneous: No free abdominal fluid. Prominent prostate. IMPRESSION: 1.Similar size of right renal solid mass measuring 2.7 cm concerning for residual carcinoma until pro shanel otherwise. 2.Multiple bilateral renal cysts, some of which demonstrate septations. Attention on follow-up is rec ommended. Reviewed by: Farhad Almeida MD on 08/02/2023 2:14 PM PST Approved by: Farhad Almeida MD on 08/02/2023 2:14 PM PST Station ID: [id number]
== END 2023-08-01 16:38 | disposition home or self-care (01) ==
LOC: DI 16:37
PROVIDERS: ATTEND Internal Medicine Nephrology
DX: N28.89 Other specified disorders of kidney and ureter (principal); Q61.02 Congenital multiple renal cysts

== ENCOUNTER 2023-09-14 07:33 | Outpatient (CLI) | payer MEDICARE, OTHER ==
[2023-09-14 12:45] LABS: ESTIMATED AVERAGE GLUCOSE 154 mg/dL (70-100)
== END 2023-09-14 07:34 | disposition home or self-care (01) ==
LOC: LAB.N 07:33
PROVIDERS: ATTEND Physician Assistant Medical
DX: E11.9 Type 2 diabetes mellitus without complications (principal)
CPT/HCPCS: 36415; 83036

== ENCOUNTER 2023-09-19 07:36 | Outpatient (CLI) | payer MEDICARE, OTHER | END 2023-09-19 07:37 | disposition home or self-care (01) | LOC: LAB.N 07:36 | PROVIDERS: ATTEND Physician Assistant Medical | DX: N40.0 Benign prostatic hyperplasia without lower urinary tract symptoms (principal) | CPT/HCPCS: 36415; 84153 ==

== ENCOUNTER 2024-04-26 14:08 | Outpatient (CLI) | payer MEDICARE, OTHER | END 2024-04-26 23:59 | disposition critical access hospital (66) | LOC: EMS 14:08 | DX: T82.838A Hemorrhage due to vascular prosthetic devices, implants and grafts, initial encounter (principal); Y65.8 Other specified misadventures during surgical and medical care | CPT/HCPCS: A0425; A0429 ==

== ENCOUNTER 2024-04-26 14:29 | Emergency (ER) | payer MEDICARE, OTHER ==
--- NOTE | 2024-04-26 14:57 | ED Physician Documentation ---
History of Present Illness - Stated complaint Stated Complaint: BLEEDING - Chief complaint Chief Complaint: General - Additonal information Additional information: 64-year-old male was getting dialysis today and was having a hard time with co ntrolling of the fistula bleeding. He was sent to the emergency department for further evaluation. No recent changes in medications was told that actually recently they decreased his heparin dose. Upon arrival to the emergency department bleeding has been well-controlled now. PD PAST MEDICAL HISTORY - Past Medical History Past Medical History: Yes Endocrine/Autoimmune: Type 2 diabetes GI: GERD - Past Surgical History Past Surgical History: Yes - Present Medications Home Medications: Ambulatory Orders Medication Instructions Recorded Confirmed Amitriptyline [Elavil] 10 mg PO QPM 05/20/19 06/02/22 Amlodipine Besylate 5 mg PO BID 05/20/19 06/02/22 Ascorbic Acid [Vitamin C with Anjana 1,000 mg PO DAILY 05/20/19 06/02/22 Hips] Cholecalciferol (Vitamin D3) 5,000 unit PO DAILY 05/20/19 06/02/22 [Vitamin D3] Fexofenadine HCl 180 mg PO DAILY 05/20/19 06/02/22 Hyoscyamine [Levsin] 0.125 mg SL DAILY 05/20/19 06/02/22 Imipramine [Tofranil] 25 mg PO QPM 05/20/19 06/02/22 Losartan Potassium 50 mg PO BID 05/20/19 06/02/22 Multivitamin [Multivitamins] 1 each PO DAILY 05/20/19 06/02/22 Pravastatin [Pravachol] 10 mg PO QPM 05/20/19 06/02/22 Propranolol [Inderal] 10 mg PO BID 05/20/19 06/02/22 Tamsulosin [Flomax] 0.4 mg PO BID 05/20/19 06/02/22 gemfibroziL [Gemfibrozil] 600 mg PO BID 05/20/19 06/02/22 polyethylene glycoL 3350 [Miralax] 17 gm PO DAILY 05/20/19 06/02/22 - Allergies Allergies/Adverse Reactions: Allergies Allergy/AdvReac Type Severity Reaction Status Date / Time losartan Allergy Unknown Verified 04/26/24 14:40 - Social History Does the pt smoke?: No Smoking Status: Never smoker Does the pt drink ETOH?: No Does the pt have substance abuse?: No - Immunizations Immunizations are current?: Yes PD ED PE NORMAL - Vitals Vital signs reviewed: Yes - General General: Alert and oriented X 3, No acute distress, Well developed/nourished - Derm Derm: Normal color, Warm and dry, No rash, Other (Left arm fistula bleeding fully resovled. no oozing) Results - Vitals Vitals: Vital Signs - 24 hr 04/26/24 04/26/24 14:37 15:04 Temperature 36.8 C 36.9 C Heart Rate 65 65 Respiratory 16 18 Rate Blood Pressure 149/66 H 153/73 H O2 Saturation 97 95 Oxygen O2 Source Room air PD Medical Decision Making - ED course ED course: 64-year-old male presents emergency department via EMS for concerns of fistula bleeding. By the time patient arrived to the emergency department upon examination the fistula bleeding has fully resolved. Bandage was removed as well as pressure dressing and he was observed over period of time and there was no recurrence of oozing of blood. New pressure dressing was applied patient told to leave his pressure dressing on until he goes back to dialysis. Return precautions taught patient is safe for discharge at this time. Departure - Departure Disposition: 01 Home, Self Care Clinical Impression: Hemorrhage associated with hemodialysis catheter Instructions: ED Shunt Dialysis Fistula Bleeding Comments: Thank you for trusting us with your care. Upon further evaluation of your fistula it appears that your bleeding has subsided. Keep the pressure dressing that I placed on your arm on until your next dialysis appointment. Please come back in if you start to notice any severe bleeding. Forms: PCP List Discharge Date/Time: 04/26/24 15:04
[2024-04-26 15:23] VITALS: BP 153/73; O2SAT 95
== END 2024-04-26 15:04 | disposition home or self-care (01) ==
LOC: EDUNIT# → ED 14:29
DX: T80.89XA Other complications following infusion, transfusion and therapeutic injection, initial encounter (principal); T82.838A Hemorrhage due to vascular prosthetic devices, implants and grafts, initial encounter; Y71.1 Therapeutic (nonsurgical) and rehabilitative cardiovascular devices associated with adverse incidents
CPT/HCPCS: 99283